=== PATIENT | female | born 1945 | race Caucasian/White ===

== ENCOUNTER 2016-04-27 07:49 | Day surgery (SDC) | payer MEDICARE ==
[~2016-04-27] VITALS: Ht 152.4 cm; Wt 71.4 kg
--- NOTE | 2016-05-26 10:44 | OR ---
ADMIT: 04/27/2016 RM/LOC: [facility] MR#: [id number] [place], [place] [id number] JORGE DUBON F [address] [place] [address] Operative/Delivery Room Report SEX: F AGE: 70 : 1945 SURGERY DATE: 04/27/2016 SURGEON: Emanuel Vail MD PREOPERATIVE DIAGNOSIS: Right breast cancer, upper medial quadrant. POSTOPERATIVE DIAGNOSIS: Right breast cancer, upper medial quadrant. PROCEDURE PERFORMED: 1. Injection of Lymphazurin for sentinel lymph node identification. 2. Right-sided sentinel lymph node biopsy. 3. Right-sided needle local lumpectomy, upper medial quadrant. WOOL HANKER: MARION Ross. ANESTHESIA: General endotracheal with addition of Marcaine in the wounds postprocedure. ESTIMATED BLOOD LOSS: Less than 10 mL. DESCRIPTION OF PROCEDURE: After appropriate informed consent was obtained, patient was brought to the operating room. General endotracheal anesthesia was induced. The patient's right breast was prepped and draped in a sterile fashion. It should be noted, prior to prepping, I did go ahead and inject 3 mL of Lymphazurin in the periareolar position. With this accomplished, and her right breast prepped and draped, I then used the gamma probe to identify an area of hot signal in the right axilla. Incision was made directly over this and this was carried deep with cautery. A nice hot blue lymph node was identified and this was excised. First count was around 3400, second count was around 1700. Background count was only 42. Since the background count was appropriately low, we handed off this lymph node and sent it as sentinel lymph node. The right axilla was nice and dry. I then proceeded with the lumpectomy. The wire was in the upper medial quadrant of her right breast. Elliptical incision made around this area. This was carried deep with cautery and a generous lumpectomy specimen was taken around the wire, it was taken all way down the chest wall fascia. With the specimen excised with what I felt ADMIT: 04/27/2016 RM/LOC: [facility] MR#: [id number] [id number] [id number] JORGE DUBON F [address] [place] [address] Operative/Delivery Room Report SEX: F AGE: 70 : 1945 would be good margins around the wires and handed off sent to Radiology, which confirmed that we had the area of interest. The wound was then irrigated out with warm saline. I ensured hemostasis with cautery. Once I was satisfied with hemostasis, both the breast wound and axillary incision were injected with Marcaine and then closed with 3-0 Vicryl in the dermal layer and running 4-0 Monocryl in the subcuticular layer. Sterile dressings were applied. Enrique Curtis assisted in this entire procedure. His help was necessary for retraction. Emanuel Vail MD/ julianne JOB #: [id number] CC: Emanuel Vail, Attending Physician Fern Napier, Family Physician MD Reji Larios MD
== END 2016-04-27 13:40 | disposition home or self-care (01) ==
LOC: SSS 07:49
PROC: 07B50ZX Excision of Right Axillary Lymphatic, Open Approach, Diagnostic (ICD-10-PCS; principal; 2016-04-27)
PROC: 0HBT0ZZ Excision of Right Breast, Open Approach (ICD-10-PCS; principal; 2016-04-27)
DX: C50.211 Malignant neoplasm of upper-inner quadrant of right female breast (principal); I10 Essential (primary) hypertension; Z79.899 Other long term (current) drug therapy; Z79.82 Long term (current) use of aspirin; Z17.0 Estrogen receptor positive status [ER+]

== ENCOUNTER → 2016-06-07 | Outpatient (CLI) | payer MEDICARE | END | disposition home or self-care (01) | DX: C50.211 Malignant neoplasm of upper-inner quadrant of right female breast (principal); I10 Essential (primary) hypertension ==